=== PATIENT | female | born 1995 | race Hispanic/Latino ===

== ENCOUNTER 2022-09-27 14:26 | Emergency (ER) | payer OTHER ==
[~2022-09-27] VITALS: Ht 167.6 cm; Wt 54.4 kg
[2022-09-27] MEDS ORDERED: ONDANSETRON HCL INJ 2MG/ML 2ML 2 MG/ML VIAL IV STA (14:38)
[2022-09-27] MEDS ORDERED: SODIUM CHLORIDE 0.9% 1000ML 1,000 ML IV ONE (14:45)
[2022-09-27] MEDS ORDERED: ACETAMINOPHEN 325 MG TAB PO ONE (14:45)
[2022-09-27] MEDS ORDERED: ONDANSETRON HCL INJ 2MG/ML 2ML 2 MG/ML VIAL ONE (14:55)
[2022-09-27] MEDS ORDERED: ACETAMINOPHEN 325 MG TAB ONE (14:56)
[2022-09-27] MEDS ORDERED: SODIUM CHLORIDE 0.9% 1000ML 1,000 ML ONE (14:56)
[2022-09-27] MEDS ORDERED: IOPAMIDOL 370 MG/ML 100 ML INFUS..BTL INJ ONE (15:03)
[2022-09-27] MEDS ORDERED: KETOROLAC TROMETHAMINE 30 MG/ML VIAL IV STA (16:01)
[2022-09-27] MEDS ORDERED: KETOROLAC TROMETHAMINE 30 MG/ML VIAL ONE (16:22)
[2022-09-27] MEDS ORDERED: ONDANSETRON ODT4 MG PO (16:37)
[2022-09-27] MEDS ORDERED: PEPCID20 MG PO (16:38)
[2022-09-27] MEDS ORDERED: DICYCLOMINE HCL 20 MG/2 ML VIAL IM ONE (17:00)
[2022-09-27] MEDS ORDERED: BELLADONNA ALK/PHENOBARBITAL 5 ML UDC PO ONE (17:15)
[2022-09-27] MEDS ORDERED: LIDOCAINE VISC 2% SOLN 15 ML UDC PO ONE (17:15)
[2022-09-27] MEDS ORDERED: MAGNESIUM HYDROXIDE 30 ML UDC PO ONE (17:15)
[2022-09-27] MEDS ORDERED: MAGNESIUM/ALUMINUM/SIMETHICONE 30 ML UDC ONE (17:21)
[2022-09-27] MEDS ORDERED: LIDOCAINE VISC 2% SOLN 15 ML UDC ONE (17:21)
[2022-09-27] MEDS ORDERED: DICYCLOMINE HCL 10 MG CAP ONE (17:21)
[2022-09-27] MEDS ORDERED: BELLADONNA ALK/PHENOBARBITAL 5 ML UDC ONE (17:21)
[2022-09-27] MEDS ORDERED: DICYCLOMINE HCL 10 MG CAP PO ONE (17:30)
[2022-09-27] MEDS ORDERED: MAGNESIUM/ALUMINUM/SIMETHICONE 30 ML UDC PO ONE (17:30)
== END 2022-09-27 17:49 | disposition home or self-care (01) ==
LOC: FSED 14:31
DX: R11.2 Nausea with vomiting, unspecified (principal); R10.10 Upper abdominal pain, unspecified
CPT/HCPCS: 74177; 80048; 80076; 81003; 81025; 83605; 85025; 87400; 96374; 96376; 99284; J1885; J2405; J7030; Q9967